=== PATIENT | female | born 1950 | race Caucasian/White ===

== ENCOUNTER → 2017-01-11 | Day surgery (SDC) | payer OTHER ==
[~2017-01-11] MED LIST: ALBUTEROL17 GM INH; ALLEGRA ALLERG180 MG PO; ALPRAZOLAM PO; BUPROPION HCL150 M1 PO; CHANTIX PO; CLARITIN D PO; FLONASE16 GM; HYDROCODON-ACE1 EAC5 PO; HYDROCODON-ACE1 EACH PO; HYDROCODONE-APA1 T30 PO; KAPIDEX; MULTIVITAMIN1 UDCAP PO; NIFEREX-150150 MG; PROSOM2 MG; SPIRIVA RESPIMAT4 G1 INH; SPIRIVA18 MCG INH; VITAMIN D 3 PO; VITAMIN D 4001 UDTAB PO; VITAMIN D31000 UNIT PO; VITAMIN D3400 UNI1 PO; WELLBUTRIN SR150 M1 PO; ZANAFLEX PO; ZANAFLEX4 M1 PO; ZOLOFT PO; ZOLOFT100 MG PO
--- NOTE | ~2017-01-11 | OR ---
Unit #: [id number] #: [id number] Patient: RADHA REID [id number] [address] [address] [id number] O MR#: [id number] NAME: RADHA REID. ROOM: Date of Procedure: 01/11/2017 Admission Date: 01/11/2017 Surgeon: Alfredo Zheng M.D. : 1950 Attending Physician: Alfredo Zheng M.D. Primary Care Physician: Brian Alves M.D. OPERATIVE REPORT PREOPERATIVE DIAGNOSES Neck pain; cervical radiculopathy; degenerative cervical disk disease, status post cervical fusion. POSTOPERATIVE DIAGNOSES Neck pain; cervical radiculopathy; degenerative cervical disk disease, status post cervical fusion. PROCEDURE PERFORMED Cervical epidural steroid injection with intravenous sedation and fluoroscopic guidance for needle localization. INDICATIONS FOR PROCEDURE The patient is a 66-year-old female with return of neck and upper extremity pain. She has severe multilevel degenerative disk disease in addition to C5-C6 fusion and treated with p.r.n. epidural steroid injections generally given her fairly good improvement. Last injections were done in 11/2015. Pain in her neck and arms become significant again in the same distribution. Plan is to repeat an epidural steroid injection based on her history and pathology. DESCRIPTION OF PROCEDURE The patient was placed in a seated position. Standard monitors were applied. 50 mcg of fentanyl were given for sedation and anxiolysis, which were adequate. Vital signs remained stable. Sterile prep and drape then of the cervical area was performed. The skin then at the C4-C5 level was localized with 1% lidocaine. An 18-gauge [employer] needle was then advanced via hanging drop technique and fluoroscopic guidance in toward the epidural space. After confirming proper positioning with fluoroscopy and radiographic contrast, 80 mg of Depo-Medrol and 1 mL of 0.25% bupivacaine were deposited. The patient tolerated the procedure otherwise well and was discharged to the recovery room in stable condition. Dictated by... Alfredo Zheng M.D. LHP/modl TD: 01/11/2017 16:10 JOB #: [id number] Unit #: [id number] #: [id number] Patient: RADHA REID OPERATIVE REPORT Page 1 of 1 X Alfredo Zheng MD X PROCEDURE OPERATIVE NOTE
== END | disposition home or self-care (01) ==
LOC: CCSC 09:27
DX: M50.122 Cervical disc disorder at C5-C6 level with radiculopathy (principal); Z79.51 Long term (current) use of inhaled steroids; Z79.891 Long term (current) use of opiate analgesic; Z79.899 Other long term (current) drug therapy; Z98.1 Arthrodesis status
CPT/HCPCS: J1040; J2250; J2405; J3010

== ENCOUNTER → 2017-02-15 | Day surgery (SDC) | payer OTHER ==
--- NOTE | ~2017-02-15 | OR ---
Unit #: [id number] #: [id number] Patient: RADHA REID [id number] [address] [address] [id number] O MR#: [id number] NAME: RADHA REID ROOM: Date of Procedure: 02/15/2017 Admission Date: 02/15/2017 Surgeon: Alfredo Zheng M.D. : 1950 Attending Physician: Alfredo Zheng M.D. Primary Care Physician: Brian Alves M.D. OPERATIVE REPORT PREOPERATIVE DIAGNOSES 1. Cervical disc disease. 2. Cervical spinal stenosis. 3. Neck pain. 4. Cervical radiculopathy. POSTOPERATIVE DIAGNOSES 1. Cervical disc disease. 2. Cervical spinal stenosis. 3. Neck pain. 4. Cervical radiculopathy. PROCEDURES PERFORMED Cervical epidural steroid injection with intravenous sedation, fluoroscopic guidance for needle localization. HISTORY This is a 66-year-old female with return of neck, upper extremity radicular pain. She was treated last with a cervical epidural steroid injection about 6 weeks ago. Usually she does well for several months with a single injection. This injection helped approximately 25% of the pain. The injection was at the C4-C5 level. The patient has significantly more distal pathology and symptomatology, plan is to repeat a second injection at the C6 level. DESCRIPTION OF PROCEDURE The patient was placed in a seated position. Standard monitors were applied. Sterile prep and drape of the cervical area was performed. The skin at the C6 level was localized with 1% lidocaine. An 18-gauge [employer] needle was then advanced via hanging drop technique and fluoroscopic guidance in toward the epidural space. After confirming proper positioning with fluoroscopy and radiographic contrast, 80 mg of Depo-Medrol and 2 mL of 0.25% bupivacaine were deposited. The patient tolerated the procedure otherwise well and was discharged to the recovery room in stable condition. Dictated by... Alfredo Zheng M.D. LHP/maciel Unit #: [id number] #: [id number] Patient: RADHA REID TD: 02/15/2017 11:45 JOB #: [id number] OPERATIVE REPORT Page 1 of 1 X Alfredo Zheng MD X PROCEDURE OPERATIVE NOTE
== END | disposition home or self-care (01) ==
LOC: CCSC 09:13
DX: M50.10 Cervical disc disorder with radiculopathy, unspecified cervical region (principal); M48.02 Spinal stenosis, cervical region; M19.90 Unspecified osteoarthritis, unspecified site; Z79.899 Other long term (current) drug therapy
CPT/HCPCS: J1040; J2250